=== PATIENT | female | born 1970 | race Caucasian/White ===

== ENCOUNTER 2016-06-23 17:40 | Emergency (ER) | payer SELFPAY ==
[2016-06-23 17:50] VITALS: BP 133/62
[2016-06-23] MEDS ORDERED: DOXY100C14 PO (18:07)
--- NOTE | 2016-06-23 18:19 | ED.ADGEN ---
Past History Past Medical History: Arthritis Past Surgical History: Knee Replacement Alcohol Use: None Drug Use: Marijuana Adult General HPI HPI Patient is a 46-year-old female presents emergency department with 48 hour history of worsening redness and tenderness to palpation on her left lower extremity. Patient states that she was out working in the yard 2 days ago and shortly thereafter noticed this area of redness and warmth. It is tender to palpation. She has been using [id number] pain medicines. Review of Systems Review of Systems Constitutional: Denies fever or chills [] Eyes: Denies change in visual acuity, redness, or eye pain [] HENT: Denies nasal congestion or sore throat [] Respiratory: Denies cough or shortness of breath [] Cardiovascular: No additional information not addressed in HPI [] GI: Denies abdominal pain, nausea, vomiting, bloody stools or diarrhea [] : Denies dysuria or hematuria [] Musculoskeletal: Denies back pain or joint pain [] Integument: Denies rash or skin lesions [] Neurologic: Denies headache, focal weakness or sensory changes [] Endocrine: Denies polyuria or polydipsia [] Allergies Allergies Allergies Coded Allergies Type Severity Reaction Last Updated Verified aspirin Allergy Intermediate 06/23/16 Yes codeine Allergy Intermediate 06/23/16 Yes Physical Exam Physical Exam Constitutional: Well developed, well nourished, no acute distress, non-toxic appearance. [] HENT: Normocephalic, atraumatic, bilateral external ears normal, oropharynx moist, no oral exudates, nose normal. [] Eyes: PERRLA, EOMI, conjunctiva normal, no discharge. [] Neck: Normal range of motion, no tenderness, supple, no stridor. [] Cardiovascular:Heart rate regular rhythm, no murmur [] Lungs & Thorax: Bilateral breath sounds clear to auscultation [] Abdomen: Bowel sounds normal, soft, no tenderness, no masses, no pulsatile masses. [] Skin: Warm, dry, 3 x 3 cm area of erythema without induration or fluctuance on her left tibia. [] Extremities: No tenderness, no cyanosis, no clubbing, ROM intact, no edema. [] Neurologic: Alert and oriented X 3, normal motor function, normal sensory function, no focal deficits noted. [] Psychologic: Affect normal, judgement normal, mood normal. [] Current Patient Data Vital Signs Vital Signs Date Time Temp Pulse Resp B/P Pulse Ox O2 Delivery O2 Flow Rate FiO2 06/23/16 17:50 98.4 82 22 97 Room Air EKG EKG [] Radiology/Procedures Radiology/Procedures [] Course & Med Decision Making Course & Med Decision Making Pertinent Labs and Imaging studies reviewed. (See chart for details) Patient was given a prescription for doxycycline. She was also given supportive care, follow-up instructions, and return precautions. [] Final Impression Final Impression Cellulitis [] Problems: Dragon Disclaimer Dragon Disclaimer This electronic medical record was generated, in whole or in part, using a voice recognition dictation system. BUDDY FOSTER MD Jun 23, 2016 18:19
== END 2016-06-23 18:17 | disposition home or self-care (01) ==
LOC: ER 17:40
DX: L03.116 Cellulitis of left lower limb (principal); M19.90 Unspecified osteoarthritis, unspecified site; F12.10 Cannabis abuse, uncomplicated; Z88.6 Allergy status to analgesic agent
CPT/HCPCS: 99283

== ENCOUNTER 2019-12-18 21:44 | Emergency (ER) | payer OTHER ==
[~2019-12-18] VITALS: Ht 172.7 cm; Wt 98.3 kg
[~2019-12-18 21:44] MED LIST: DOXY100C14 PO
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
[2019-12-18] MEDS ORDERED: TETRACAINE 0.5% OPHTH SOLUTION 4ML BOTTLE. ONE (22:15)
[2019-12-18] MEDS ORDERED: PROPARACAINE 0.5% OPHTH SOLUTION 15ML BOTTLE. OD ONE (22:30)
[2019-12-18] MEDS ORDERED: FLUORESCEIN 1MG EYE STRIP. OD ONE (22:30)
--- NOTE | 2019-12-18 22:56 | RAD ---
EXAM: CT orbits without contrast. HISTORY: Right eye pain and redness after trauma. TECHNIQUE: CT of the orbits was performed without intravenous contrast. One or more of the following individualized dose reduction techniques were utilized for this examination: 1. Automated exposure control. 2. Adjustment of the mA and/or kV according to patient size. 3. Use of iterative reconstruction technique. COMPARISON: None. FINDINGS: There is no radiopaque foreign body. There is no pre or post septal soft tissue swelling. Both globes appear intact. No orbital fractures are seen bilaterally. The visualized portions of the paranasal sinuses are clear. IMPRESSION: 1. No evidence of orbital injury by CT. Electronically signed by: Annelise Sigala MD (12/18/2019 10:54 PM) [facility]
[2019-12-18] MEDS ORDERED: ERYT30GE2 TP (23:14)
[2019-12-18] MEDS ORDERED: DIPH,PERTUSS(ACELL),TET VAC/PF 0.5 ML SYRINGE. VAX IM ONE (23:30)
[2019-12-18] MEDS ORDERED: KETOROLAC 30 MG/ML VIAL. IM ONE (23:45)
[2019-12-19 03:19] VITALS: BP 133/62
== END 2019-12-18 23:34 | disposition home or self-care (01) ==
LOC: ER 21:44
DX: S05.01XA Injury of conjunctiva and corneal abrasion without foreign body, right eye, initial encounter (principal); I10 Essential (primary) hypertension; M19.90 Unspecified osteoarthritis, unspecified site; Z88.6 Allergy status to analgesic agent; Z88.5 Allergy status to narcotic agent; W22.8XXA Striking against or struck by other objects, initial encounter; Y93.89 Activity, other specified; Y92.89 Other specified places as the place of occurrence of the external cause; Y99.8 Other external cause status
CPT/HCPCS: 70480; 99284-25

== ENCOUNTER 2020-03-30 17:23 | Emergency (ER) | payer OTHER ==
[~2020-03-30] VITALS: Ht 172.7 cm; Wt 98.3 kg
[~2020-03-30 17:23] MED LIST changes: +ERYT30GE2 TP
[2020-03-30] MEDS ORDERED: KETOROLAC 60 MG/2 ML VIAL. IM ONE (20:15)
--- NOTE | 2020-03-30 20:43 | RAD ---
Examination: 4 views of the right knee HISTORY: History of fall COMPARISON: None available Findings/ impression: Severe joint space loss identified in the medial, lateral, patellofemoral compartments with moderate size osteophyte formation in the medial, lateral, patellofemoral compartments. Small knee joint effus ion is identified. Electronically signed by: Arnie Akbar MD (03/30/2020 8:41 PM) [id number]
[2020-03-30] MEDS ORDERED: IBUP600T16 PO (21:10)
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
[2020-03-30 21:15] VITALS: BP 125/97
== END 2020-03-30 21:15 | disposition home or self-care (01) ==
LOC: ER 17:23
DX: S80.01XA Contusion of right knee, initial encounter (principal); F41.9 Anxiety disorder, unspecified; M19.90 Unspecified osteoarthritis, unspecified site; J45.909 Unspecified asthma, uncomplicated; Z88.6 Allergy status to analgesic agent; Z88.5 Allergy status to narcotic agent; W01.0XXA Fall on same level from slipping, tripping and stumbling without subsequent striking against object, initial encounter; Y93.01 Activity, walking, marching and hiking; Y92.89 Other specified places as the place of occurrence of the external cause; Y99.8 Other external cause status
CPT/HCPCS: 29505; 73564; 81025; 96372; 99283; J1885

== ENCOUNTER 2020-04-10 00:24 | Emergency (ER) | payer OTHER ==
[~2020-04-10] VITALS: Ht 172.7 cm; Wt 100.0 kg
[~2020-04-10 00:24] MED LIST changes: +IBUP600T16 PO
--- NOTE | 2020-04-10 00:27 | PHYS DOC ---
Past History Past Medical History: Anxiety, Arthritis, Asthma Past Surgical History: Knee Replacement Alcohol Use: None Drug Use: Marijuana General Adult HPI: HPI: ".. 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 and I fell on the ice...".. " I didnt have my knee brace on.. I was just here for that.. and I hit it again.. and my butt hurts .. where I fell...on it... I really hit my head hard..." and I hit this Rt. wrist...".." I drove here.. but can I get a Toradol shot.. that is what worked the last time.. Patient is a 49 year old female who presents with above hx and complaints of fall on the ice in front of her apartment building. 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 States since it was a short distance she was not wearing her knee brace. Patient recently had fall and injury to right knee. Patient states she had no loss of consciousness from the head injury but did see stars. Primary areas of concern contusions are posterior scalp, right knee, both wrist and lumbar sacral area. Patient denies any travel. Patient denies any specific ill contacts. Patient denies any history of immunosuppr ession. Patient was seen in emergency room on 03/30 for a fall and Rt knee injury pt. Follows with Dr. Stallings. Review of Systems: Review of Systems: Constitutional: Denies fever or chills Eyes: Denies change in visual acuity HENT: Complains of head injury Respiratory: Denies cough or shortness of breath Cardiovascular: Denies chest pain or edema GI: Denies abdominal pain, nausea, vomiting, bloody stools or diarrhea : Denies dysuria Musculoskeletal: Complains of pelvis and lumbar sacral pain, complains of right knee pain Integument: Denies rash Neurologic: Denies headache, focal weakness or sensory changes Endocrine: Denies polyuria or polydipsia Lymphatic: Denies swollen glands Psychiatric: Denies depression or anxiety Family History: Family History: Noncontributory to presentation Current Medications: Current Meds: Patient is allergic to aspirin and codeine Allergies: Allergies: Allergies Coded Allergies Type Severity Reaction Last Updated Verified aspirin Allergy Intermediate 06/23/16 Yes codeine Allergy Intermediate 06/23/16 Yes Physical Exam: PE: Constitutional: Moderate acute distress, non-toxic appearance. [] HENT: Normocephalic, complains of contusion to posterior scalp, bilateral external ears normal, oropharynx moist, no oral exudates, nose normal. [] Eyes: PERRLA, EOMI, conjunctiva normal, no discharge. [] Neck: Normal range of motion, upper neck tenderness, supple, no stridor. [] Cardiovascular:Heart rate regular rhythm, no murmur, PMI to left Lungs & Thorax: Bilateral breath sounds equal apex with scattered wheezes on auscultation [] Abdomen: Bowel sounds normal, soft, no tenderness, no masses, no pulsatile masses. Obese. Lumbar sacral and posterior pelvic girdle pain Skin: Warm, dry, no erythema, no rash. [] Back: No tenderness, no CVA tenderness. [] Extremities: Right knee tenderness, no cyanosis, no clubbing, ROM intact, no edema. Patient can do straight leg lift. There is some crepitation with range of motion right knee. Distal circulation is equal to left leg. Neurologic: Alert and oriented X 3, normal motor function, normal sensory function, no focal deficits noted. [] Psychologic: Affect anxious judgement normal, mood normal. [] EKG: EKG: [] Radiology/Procedures: Radiology/Procedures: [place] [address] IMAGING REPORT Signed PATIENT: ARASELI PATRICK AACCOUNT: [id number] : 1970 LOCATION: ER AGE: 49 SEX: F EXAM STATUS: REG ER ORD. PHYSICIAN: JUAN M LIU MD REASON: Fall on ice- repeat injury to right knee, pain PROCEDURE: KNEE RIGHT 4V INDICATION: Reason: Fall on ice- repeat injury to right knee, pain / Spl. Instructions: / History: COMPARISON: March 30, 2020 IMPRESSION: Right knee: 4 views obtained. Severe degenerative changes to the right knee with osteophyte formation as well as joint space narrowing. There is some edema Hoffa's fat pad. No definite acute fracture. No evidence of dislocation. Electronically signed by: Narayan Perez MD (04/10/2020 3:31 AM) [id number] DICTATED AND SIGNED BY: NARAYAN PEREZ MD DATE: 04/10/20327 CC: JUAN M LIU MD; LEI STALLINGS ~MTH0 [address] [address] IMAGING REPORT Signed PATIENT: ARASELI PATRICK AACCOUNT: [id number] : 1970 LOCATION: ER AGE: 49 SEX: F EXAM STATUS: REG ER ORD. PHYSICIAN: JUAN M LIU MD REASON: fell on ice, loc?, headache and neck pain PROCEDURE: CT HEAD AND CERVICAL SPINE WO INDICATION: Reason: fell on ice, loc?, headache and neck pain / Spl. Instructions: / History: . COMPARISON: December 2018 TECHNIQUE: Axial CT images obtained through the head and cervical spine. One or more of the following individualized dose reduction techniques were utilized for this examination: 1. Automated exposure control; 2. Adjustment of the mA and/or kV according to patient size; 3. Use of iterative reconstruction technique. FINDINGS: Head: No midline shift. Suprasellar cistern is not effaced. No acute intracranial hemorrhage. Mild bowing of the nasal septum. No evidence of hydrocephalus. Cervical spine: Degenerative changes are identified with disc osteophyte complexes as well as facet hypertrophy. No evidence of acute fracture or dislocation. IMPRESSION: * No acute intracranial hemorrhage. * Degenerative changes of cervical spine without acute fracture Electronically signed by: Narayan Perez MD (04/10/2020 2:31 AM) [id number] DICTATED AND SIGNED BY: NARAYAN PEREZ MD DATE: 04/10/20220 CC: JUAN M LIU MD; LEI STALLINGS ~MTH0 0 [][address] [address] IMAGING REPORT Signed PATIENT: ARASELI PATRICK AACCOUNT: [id number] : 1970 LOCATION: ER AGE: 49 SEX: F EXAM STATUS: REG ER ORD. PHYSICIAN: JUAN M LIU MD REASON: Fall on ice, tailbone pain PROCEDURE: CT PELVIS WO CONTRAST INDICATION: Reason: Fall on ice, tailbone pain / Spl. Instructions: / History: . COMPARISON: None. TECHNIQUE: Axial CT images obtained through the pelvis. One or more of the following individualized dose reduction techniques were utilized for this examination: 1. Automated exposure control; 2. Adjustment of the mA and/or kV according to patient size; 3. Use of iterative reconstruction technique. FINDINGS: Grade 1 anterolisthesis of L4 on 5. Degenerative changes at partially visualized lower lumbar spine with disc osteophyte complexes as well as facet hypertrophy. No evidence of acute fracture or dislocation. No dislocation at the hips. IMPRESSION: * No acute fracture or dislocation Electronically signed by: Narayan Perez MD (04/10/2020 2:37 AM) [id number] DICTATED AND SIGNED BY: NARAYAN PEREZ MD DATE: 04/10/20230 CC: JUAN M LIU MD; LEI STALLINGS ~MTH0 0 Heart Score: Risk Factors: Risk Factors: DM, Current or recent (<one month) smoker, HTN, HLP, family history of CAD, obesity. Risk Scores: Score 0 - 3: 2.5% MACE over next 6 weeks - Discharge Home Score 4 - 6: 20.3% MACE over next 6 weeks - Admit for Clinical Observation Score 7 - 10: 72.7% MACE over next 6 weeks - Early Invasive Strategies Course & Med Decision Making: Course & Med Decision Making Pertinent Labs and Imaging studies reviewed. (See chart for details) Pt. to take Tylenol or Ibuprofen for pain. Use ice packs. Follow-up primary care. Marked pain may take Vicoprofen up to 4 times a day. Patient may take Flexeril 10 mg up to 3 times a day for muscle spasms. Expect increased soreness over the next 2 to 3 days. Follow-up primary care. Return if any concerns. Patient return if any concerns. Patient given head injury precautions. Patient recommended she wear brace as previously instructed. Must follow-up. Impression: 1. Fall 2. Multiple Contusions. 3. Head injury 4. Neck sprain [] Meenakshi Disclaimer: Meenakshi Disclaimer: This electronic medical record was generated, in whole or in part, using a voice recognition dictation system. Departure Departure: Referrals: LEI STALLINGS (PCP) Scripts Hydrocodone/Ibuprofen (HYDROCODONE-IBUPROFEN 7.5-200 ) 1 Each Tablet 1 TAB PO PRN Q6HRS PRN for PAIN, #30 TAB 0 Refills Prov: JUAN M LUI MD 04/10/20 Cyclobenzaprine Hcl (CYCLOBENZAPRINE HCL) 10 Mg Tablet 10 MG PO TID PRN PRN for spasms, #30 TAB Prov: JUAN M LIU MD 04/10/20 Dragon Disclaimer This chart was dictated in whole or in part using Voice Recognition software in a busy, high-work load, and often noisy Emergency Department environment. It may contain unintended and wholly unrecognized errors or omissions. JUAN M LIU MD Apr 10, 2020 00:27
--- NOTE | 2020-04-10 02:33 | RAD ---
INDICATION: Reason: fell on ice, loc?, headache and neck pain / Spl. Instructions: / History: . COMPARISON: December 2018 TECHNIQUE: Axial CT images obtained through the head and cervical spine. One or more of the following individualized dose reduction techniques were utilized for this examinat ion: 1. Automated exposure control; 2. Adjustment of the mA and/or kV according to patient size; 3 . Use of iterative reconstruction technique. FINDINGS: Head: No midline shift. Suprasellar cistern is not effaced. No acute intracranial hemorrhage. Mild bowing of the nasal septum. No evidence of hydrocephalus. Cervical spine: Degenerative changes are identified with disc osteophyte complexes as well as facet hypertrophy. No e vidence of acute fracture or dislocation. IMPRESSION: * No acute intracranial hemorrhage. * Degenerative changes of cervical spine without acute fracture Electronically signed by: Oswald Kamara MD (04/10/2020 2:31 AM) [id number]
--- NOTE | 2020-04-10 02:39 | RAD ---
INDICATION: Reason: Fall on ice, tailbone pain / Spl. Instructions: / History: . COMPARISON: None. TECHNIQUE: Axial CT images obtained through the pelvis. One or more of the following individualized dose reduction techniques were utilized for this examinat ion: 1. Automated exposure control; 2. Adjustment of the mA and/or kV according to patient size; 3 . Use of iterative reconstruction technique. FINDINGS: Grade 1 anterolisthesis of L4 on 5. Degenerative changes at partially visualized lower lumbar spine w ith disc osteophyte complexes as well as facet hypertrophy. No evidence of acute fracture or dislocat ion. No dislocation at the hips. IMPRESSION: * No acute fracture or dislocation Electronically signed by: Oswald Kamara MD (04/10/2020 2:37 AM) [id number]
[2020-04-10] MEDS ORDERED: HYDR-1179 PO (03:09)
[2020-04-10] MEDS ORDERED: CYCL-331 PO (03:09)
[2020-04-10] MEDS ORDERED: KETOROLAC 60 MG/2 ML VIAL. IM ONE (03:30)
--- NOTE | 2020-04-10 03:33 | RAD ---
INDICATION: Reason: Fall on ice- repeat injury to right knee, pain / Spl. Instructions: / History: COMPARISON: March 30, 2020 IMPRESSION: Right knee: 4 views obtained. Severe degenerative changes to the right knee with osteophyte formation as well as joint space narrowing. There is some edema Hoffa's fat pad. No definite acute fracture. N o evidence of dislocation. Electronically signed by: Oswald Kamara MD (04/10/2020 3:31 AM) [id number]
[2020-04-10 03:43] VITALS: BP 141/81
== END 2020-04-10 03:45 | disposition home or self-care (01) ==
LOC: ER 00:24
DX: S13.9XXA Sprain of joints and ligaments of unspecified parts of neck, initial encounter (principal); S00.03XA Contusion of scalp, initial encounter; M23.8X1 Other internal derangements of right knee; M54.5 Low back pain; R10.2 Pelvic and perineal pain; W00.0XXA Fall on same level due to ice and snow, initial encounter; Y93.89 Activity, other specified; Y92.89 Other specified places as the place of occurrence of the external cause; Y99.8 Other external cause status
CPT/HCPCS: 70450; 72125; 72192; 73564; 96372; 99285; J1885